=== PATIENT | male | born 1935 | race Caucasian/White ===

== ENCOUNTER 2021-03-10 | Outpatient (CLI) | payer MEDICARE, OTHER | END 2021-03-10 23:59 | disposition short-term general hospital (02) | DX: R41.82 Altered mental status, unspecified (principal) | CPT/HCPCS: A0425; A0429 ==

== ENCOUNTER 2021-03-16 17:00 | Outpatient (CLI) | payer MEDICARE, OTHER | END 2021-03-16 17:01 | disposition short-term general hospital (02) | LOC: EMS 17:00 | DX: R42 Dizziness and giddiness (principal); R53.1 Weakness; R19.7 Diarrhea, unspecified | CPT/HCPCS: A0425; A0427 ==

== ENCOUNTER 2021-06-11 10:36 | Outpatient (CLI) | payer MEDICARE, OTHER | END 2021-06-11 10:37 | disposition short-term general hospital (02) | LOC: EMS 10:36 | DX: M25.511 Pain in right shoulder (principal); W01.0XXA Fall on same level from slipping, tripping and stumbling without subsequent striking against object, initial encounter; Y92.098 Other place in other non-institutional residence as the place of occurrence of the external cause; R55 Syncope and collapse | CPT/HCPCS: A0425; A0427 ==